=== PATIENT | female | born 1985 | race African-American/Black ===

== ENCOUNTER 2024-04-26 13:11 | Emergency (ER) | payer OTHER, SELFPAY ==
[2024-04-26 13:14] VITALS: BP 117/71
[2024-04-26 13:21] VITALS: BMI 24.2
[2024-04-26 14:00] VITALS: BP 108/75
--- NOTE | 2024-04-26 14:41 | ED.GENMED ---
History of Present Illness
<Hortensia Celeste PA-C - Last Filed: 04/26/24 19:24>
General
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
Source: patient and other (Skilled Nursing guards)
Exam Limitations: none
Time Seen by Provider: 04/26/24 13:25
Nursing documentation reviewed up to this point in time: agreed with
History of Present Illness
History of Present Illness:
Patient is a 38-year-old female presenting with police for evaluation of possible foreign body. Patient reports that she was brought to [facility] today and underwent routine 'scans 'during the intake process which showed possible foreign body. They
believe these scans were some type of x-ray imaging. Per patient and police there was object noted near her left pelvic region. Patient denies placing any foreign bodies internally. Patient denies any abdominal or pelvic pain. No
nausea/vomiting. No abnormal vaginal bleeding or discharge.
Patient denies any current or past drug use. Patient states her last menstrual period finished a few days ago although she denies using tampons.
Review of Systems
<Hortensia Celeste PA-C - Last Filed: 04/26/24 19:24>
Review of Systems
Allergies reviewed?: Yes
All Other Systems: ROS reviewed and negative except as documented in HPI and ROS
Phy Exam
<Hortensia Celeste PA-C - Last Filed: 04/26/24 19:24>
Physical Exam
Physical Exam:
Vitals: Patient's vital signs are stable. Afebrile
General: Patient is well appearing, no acute distress. Nontoxic.
Skin: Warm and dry, no rashes or lesions
Head: Normocephalic, atraumatic
Eyes: Sclera nonicteric. EOMs intact. No nystagmus.
Throat: Protecting airway
Neck: Normal ROM, no cervical spine tenderness, no meningismus
Cardiac: Regular rate and rhythm, no murmurs.
Pulm: Normal respiratory effort, no wheezes, rales, rhonchi heard on exam.
Abdomen: Abdomen soft and nontender.
Pelvic: No visualized or palpated foreign body on speculum exam or bimanual exam in vaginal vault. Physiologic discharge present.
Extremities: No evidence of cyanosis or edema
Neuro: AAOx3. Grossly intact.
Psychiatric: Normal affect.
Course
<Hortensia Celeste PA-C - Last Filed: 04/26/24 19:24>
Orders/Labs/Results
Orders:
Orders
04/26/24 14:10
Pelvis, 1 or 2 Views CR [CR Pelvis - 1 Or 2 Views ] Urgent
Comment:
Reason For Exam: possible foreign body
04/26/24 14:13
Test Result ONCE
04/26/24 14:18
Urine,Hcg qualitative screen [HCG, Urine Qualitative Screen] Urgent
Date Specimen was Collected: 04/26/24
Time Specimen was Collected: 14:15
Vital Signs
Initial and Last Documented VS:
Initial Vital Signs
Temp Resp BP Pulse Ox
97.9 F 16 117/71 100
04/26/24 13:14 04/26/24 13:14 04/26/24 13:14 04/26/24 13:14
Last Documented Vital Signs
Temp Pulse Resp BP Pulse Ox
97.9 F 96 18 110/79 98
04/26/24 13:14 04/26/24 16:01 04/26/24 16:01 04/26/24 16:01 04/26/24 16:01
<Tracy Cunningham DO - Last Filed: 04/26/24 15:51>
Orders/Labs/Results
Orders:
Orders
04/26/24 14:10
Pelvis, 1 or 2 Views CR [CR Pelvis - 1 Or 2 Views ] Urgent
Comment:
Reason For Exam: possible foreign body
04/26/24 14:13
Test Result ONCE
04/26/24 14:18
Urine,Hcg qualitative screen [HCG, Urine Qualitative Screen] Urgent
Date Specimen was Collected: 04/26/24
Time Specimen was Collected: 14:15
Vital Signs
Initial and Last Documented VS:
Initial Vital Signs
Temp Resp BP Pulse Ox
97.9 F 16 117/71 100
04/26/24 13:14 04/26/24 13:14 04/26/24 13:14 04/26/24 13:14
Last Documented Vital Signs
Temp Pulse Resp BP Pulse Ox
97.9 F 96 18 110/79 98
04/26/24 13:14 04/26/24 16:01 04/26/24 16:01 04/26/24 16:01 04/26/24 16:01
<Hortensia Celeste PA-C - Last Filed: 04/26/24 19:24>
MDM/Problems Addressed
Differential Diagnosis Includes:
Not limited to: Foreign body, etc.
MDM/Problems Addressed:
38-year-old female presenting from [facility] after possible foreign body identified on intake screening exam. Patient denies placing any foreign bodies in vaginal vault. No abnormal vaginal discharge, bleeding. No fevers or chills. No abdominal pain.
Patient arrives a stable vital signs. She is afebrile. On exam�patient is very well-appearing, no apparent distress. Patient is very cooperative with exam. Abdomen soft and nontender. Cardio/pulmonary assessment unremarkable. Patient did
consent to pelvic exam, both speculum and bimanual exam without any visualized or palpated foreign bodies in vaginal vault or fornices. No other abnormalities noted. Pelvis x-ray was also obtained which shows no obvious foreign body. However�a
moderate mount of stool was noted in colon reflecting possible constipation. Ultimately�low suspicion for foreign body after negative x-ray and normal pelvic exam. Feel patient is stable for discharge back to [facility] for incarceration. Return
precautions discussed. Patient seen with attending physician.
Chronic conditions affecting care:
N/A
Acute Exacerbation and/or Progression of Chronic Illness:
N/A
<Hortensia Celeste PA-C - Last Filed: 04/26/24 19:24>
*Radiology
Radiology exam reviewed: preliminary read by ED provider (Pelvis x-ray reviewed by me-no obvious foreign body, moderate stool burden)
*Pulse Oximetry
Patient hypoxic: no
*EKG
Interpreted by ED Provider?: NA
*Machinery Erector Interpretation
Rate: Machinery Erector- N/A
*Critical Care Note
Total Time (30-74mins, 75-104mins- exclusive of procedures): Not Applicable
ED Attending Note
<Hortensia Celeste PA-C - Last Filed: 04/26/24 19:24>
-
Portions of this chart may have been created with voice recognition software.� Occasional wrong word or��sound alike� substitutions may have occurred due to the inherent limitations of voice recognition software.
<Tracy Cunningham DO - Last Filed: 04/26/24 15:51>
ED Attending Note
Patient seen and examined by attending physician: Yes
I performed the substantive portion of visit, reviewed & personally made and approve the management plan that is documented in note by myself or JOHN.: Yes
I performed a history and physical exam of patient and discussed management with resident, I reviewed resident's note and agree with documented findings and plan of care.: Yes
ED Attending Note:
38-year-old female presenting from correctional facility for concern of foreign body. During intake, patient had screening imaging that the correctional facility mandates and there is a potential foreign body checked in the pelvis. Patient denies
any foreign body. Patient without acute complaints. Vital signs within normal limits.
On exam patient is well-appearing, no acute distress or discomfort. Unremarkable external exam. Will plan for pelvic x-ray and internal exam ensure no retained foreign body, however overall low suspicion.
16:00 -x-ray negative. Patient consented to internal exam, no detected foreign body. Plan for discharge.
Discharge Plan
Departure
Patient Disposition: Skilled Nursing
Date of Disposition: 04/26/24
Time of Disposition: 15:55
Patient with high blood pressure during this ER visit?: No
Covid-19: Not Applicable
Discharge Problem:
Medical clearance for incarceration
Prescriptions:
No Action
albuterol sulfate 90 mcg/actuation Hfa Aerosol Inhaler
1 inh INHALATION PRN PRN (Reason: .as directed)
Referrals:
UNKNOWN - PT DOES,NOT KNOW [Family Provider] -
Activity Restrictions/Additional Instructions:
RETURN TO THE EMERGENCY DEPARTMENT WITH ANY FEVERS, ABNORMAL VAGINAL BLEEDING OR DISCHARGE, SEVERE ABDOMINAL PAIN, WORSENING IN CURRENT SYMPTOMS, OR ANY OTHER CONCERNS
-As discussed�there was no evidence of foreign body on your evaluation in the emergency department.
PATIENT IS MEDICALLY CLEARED FOR INCARCERATION
Interventions
Interventions:
*Risk Screen - Suicide Last Done: 04/26/24 13:18
*General Assessment Last Done: 04/26/24 15:24
*Neglect/Abuse Screening Last Done: 04/26/24 13:18
ED- Fall Risk Assessment Last Done: 04/26/24 13:22
*ED COVID-19 Vaccine History Last Done: 04/26/24 13:21
*Nursing Disposition Last Done: 04/26/24 16:01
ED-Female Genitourinary Assessment Last Done: 04/26/24 13:23
Discharge Date and Time
Discharge Date/Time: 04/26/24 16:02
Print Language: LAO
[2024-04-26 15:00] VITALS: BP 103/59
[2024-04-26 15:20] LABS: HCG, Urine Qualitative Screen Negative
[2024-04-26 15:59] VITALS: BP 110/79
[2024-04-26 16:01] VITALS: BP 110/79
== END 2024-04-26 16:02 ==
LOC: EMR 13:11
PROVIDERS: Physician Assistant; EMERGENCY PHYSICIAN Student in an Organized Health Care Education/Training Program
DX: Z02.89 Encounter for other administrative examinations (principal)
CPT/HCPCS: 99284; 72170; 81025